=== PATIENT | female | born 1945 | race Caucasian/White ===

== ENCOUNTER → 2016-04-23 | Outpatient (CLI) | payer OTHER | LOC: CIMAGING 12:19 | PROVIDERS: ATTEND Family Medicine | DX: I51.7 Cardiomegaly (principal); M25.78 Osteophyte, vertebrae | CPT/HCPCS: 71020-PO ==

== ENCOUNTER → 2016-05-15 | Outpatient (CLI) | payer OTHER | LOC: CIMAGING 10:46 | DX: Z12.31 Encounter for screening mammogram for malignant neoplasm of breast (principal); Z80.3 Family history of malignant neoplasm of breast | CPT/HCPCS: G0202 ==

== ENCOUNTER 2016-08-01 20:58 | Emergency (ER) | payer OTHER ==
--- NOTE | 2016-08-01 21:05 | EDPHY ---
H & P HPI/ROS: HPI CHIEF COMPLAINT: Cat Bite , MULTIPLE SCRATCHES HISTORY OF PRESENT ILLNESS: This patient very pleasant 71-year-old female, up- to-date on tetanus shot, presents emergency room if she states her cat's tail got stuck in the cord of the blinds she had cut the cord of the blinds get the CT removed but in the process the CT tacked her she sustained a bite wound to the index finger left hand, also multiple scratches throughout her left arm and left leg. And a scratch on her right hand. Main concern is the bite wound to the left index finger. Of note the patient's left index finger she has horizontally oriented 2 cm laceration to the palmar aspect distal aspect of the finger along the pad. No tendon involvement. Neurovascular intact. Patient understands cat bites are at high risk for infection. She will be started on Augmentin here in the emergency room. Her tetanus shot is up-to- date. Will clean all of her wounds. She will need the palmar laceration that is distal index finger left hand approximately 3 cm in horizontal length. This most likely need 1 stitch for loose approximation of the wound edges as it is somewhat gaping. This this is her own cat. The cat is up-to-date on shots. Past Medical History: Hypertension Past Surgical History: No recent surgical history Social History: Denies daily use of drugs alcohol tobacco products Family History: Noncontributory ROS REVIEW OF SYSTEMS: A comprehensive 10 point review of systems is otherwise negative aside from elements mentioned in the history of present illness. Exam Constitutional appears well nontoxic triage nursing summary reviewed, vital signs reviewed, awake/alert. Eyes normal conjunctivae and sclera, EOMI, PERRLA. HENT normal inspection, atraumatic, moist mucus membranes, no epistaxis, neck supple/ no meningismus, no raccoon eyes. Respiratory clear to auscultation bilaterally, normal breath sounds, no respiratory distress, no wheezing. Cardiovascular rate normal, regular rhythm, no murmur, no edema, distal pulses normal. Gastrointestinal soft, non-tender, no rebound, no guarding, normal bowel sounds, no distension, no pulsatile mass. Genitourinary no CVA tenderness. Musculoskeletal no midline vertebral tenderness, full range of motion, no calf swelling, no tenderness of extremities, no meningismus, good pulses, neurovascularly intact. Skin left hand, palmar side, index finger, 3 cm horizontal laceration distal aspect. Somewhat gaping. There are other multiple cat scratch regions down the left arm, left leg and 1 to the right hand. No evidence of infection at this time is cellulitis. Left hand is neurovascular intact. No tendon involvement. No arterial vomit. Good cap refill. Full range of motion. Neurologic awake, alert and oriented x 3, AAOx3, moves all 4 extremities equally, motor intact, sensory intact, CN II-XII intact, normal cerebellar, normal vision, normal speech. Psychiatric normal mood/affect. Heme/Lymph/Immune no lymphadenopathy. Differential Diagnosis: Includes but is not limited to in a particular order, cat bite, risk for cat bite infection, multiple scratches. Medical Decision Making: Plan for this patient Augmentin p.o. here. Clean wounds. Irrigate left index finger hand wound copiously. May need 1 suture to closely approximate the wound edges. She understands watch wound closely for signs of infection. Re-evaluation: 2144: Patient's wounds have been copiously irrigated and cleaned out. Laceration Repair Procedure: Verbal Consent was obtained, Under sterile conditions, The patient had lidocaine with epinephrine used approximately 4ccs to local anesthetize the Left Index finger horizontal laceration 3cm Laceration. The wound was copiously irrigated with sterile fluid, the wound was explored for foreign bodies there were none visualized, the wound was explored with a sterile glove to the base. There are no deep structures involved, including no arterial injury. TWO 5.0 Prolene interrupted Sutures were placed in this patient's laceration. She had good loose approximation of the wound edges. He Tolerated this well. The wound was not tightly closed as is cat bite. Loosely approximate the wound edges available to release pressure or drain if infection sats in. 2145: Patient has been splinted in a luminal form finger splint for comfort and immobilization. A pressure dressing has been applied due to venous oozing. Patient understands to watch this very closely. Has not cause been applied. She understands watch her wound closely for signs of infection this includes redness, swelling, pus, drainage. Take Augmentin as prescribed. 1st dose given here in emergency room. Suture out in 10-12 days. Sooner if signs of infection. 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, HTN - Social History Smoking Status: Never smoked Constitutional: Initial Vital Signs Heart Rate 76 08/01/16 21:23 Blood Pressure 162/91 H 08/01/16 21:23 O2 Sat (%) 95 08/01/16 21:23 O2 Delivery Mode Room Air Allergies/Adverse Reactions: No Known Allergies Allergy (Verified 02/15/16 19:20) Home Medications: Medication Instructions Recorded Aspirin 02/15/16 CALCIUM 02/15/16 Herbals/Supplements -Info Only 02/15/16 MAGNESIUM 02/15/16 [place] 3 Fish Oil Softgel 02/15/16 Vitamin D3 02/15/16 Amoxicillin/Clavulanate Pot 875 mg PO BID #14 tab 08/01/16 [Augmentin 875 MG TAB (*)] Atenolol 08/01/16 Medical Decision Making - Data Points Medications Given: Discontinued Medications Amoxicillin/Clavulanate Potassium (Augmentin 875mg) 875 mg PO EDNOW ONE PRN Reason: Protocol Stop: 08/01/16 21:16 Last Admin: 08/01/16 21:42 Dose: 875 mg Departure - Departure Disposition: Home, Routine, Self-Care Clinical Impression: Cat scratch Cat bite Qualifiers: Encounter type: initial encounter Qualified Code(s): W55.01XA - Bitten by cat, initial encounter Condition: Good Instructions: Animal Bite (ED), Laceration (ED), Care For Your Stitches (ED) Additional Instructions: 1. Watch your wound closely for signs of infection this includes redness, swelling, pain, drainage, pus. 2. Please complete her antibiotics as prescribed. Take them with food and yogurt not on an empty stomach. Augmentin is known to cause diarrhea. 3. Stay well-hydrated return emergency room if you have any worsening symptoms questions concerns her stitch needs to be removed in 10-12 days. Sooner if signs of infection return immediately. Referrals: Fabiola Morales, [facility] [Primary Care Provider] - As per Instructions Prescriptions: Amoxicillin/Clavulanate Pot [Augmentin 875 MG TAB (*)] 875 mg PO BID #14 tab
[2016-08-01] MEDS ORDERED: AMOXICILLIN/CLAVULANATE POT 875/125 MG TAB PO ONE (21:15)
[2016-08-01 21:23] VITALS: O2SAT 95
[2016-08-01 22:38] VITALS: BP 174/93; PULSE 74; RESP 16; TEMP 98.4
== END 2016-08-01 22:30 | disposition home or self-care (01) ==
LOC: CED 20:58
PROC: 0HQGXZZ Repair Left Hand Skin, External Approach (ICD-10-PCS; principal; 2016-08-01)
DX: S61.211A Laceration without foreign body of left index finger without damage to nail, initial encounter (principal); I10 Essential (primary) hypertension; Z79.82 Long term (current) use of aspirin; W55.01XA Bitten by cat, initial encounter

== ENCOUNTER 2016-08-04 14:02 | Emergency (ER) | payer OTHER ==
[2016-08-04 14:44] VITALS: BP 141/84; PULSE 60; RESP 16; TEMP 97.7; O2SAT 94
--- NOTE | 2016-08-04 14:44 | EDPHY ---
H & P Time Seen by Provider: 08/04/16 14:31 HPI/ROS: HPI Wound check, left index finger. 71-year-old female by private vehicle with her . Patient is right-hand dominant. She sustained a cat bite wound to the tip of her left index finger 2 days ago on August 02. She was seen in the emergency department and treated by Dr. Chong Cano. He placed 2 sutures, 1 over the finger pad and the other at the tip of the index finger. She was placed on Augmentin. She returns to the emergency department for wound check. She denies any significant increase in swelling or discoloration. She is going away in a few days and wanted it looked out before she went away. She has not had a fever or significantly increased pain. She has been taking her Augmentin, 875 mg, twice daily as prescribed. ROS: Constitutional: No fever, no chills. No weakness. Musculoskeletal: As above Skin: As above Neurological: No focal weakness or altered sensation. Past medical history: Hypertension. No surgical history. No history of diabetes. Social history: Nonsmoker. Here with her . Physical Exam: General Appearance: Alert, no distress. This patient is responding to questions appropriately and in full sentences. This patient appears well- hydrated and well-nourished. Eyes: Pupils equal and round no pallor or injection. No lid edema, erythema or injection. Left index finger: She does have some swelling to the pulp of the distal and mid finger pad. The sutures are intact. There is some erythema associated with this but does not advance proximal to the PIP joint. She says that is unchanged from 2 days ago. She does not have any significant pain on palpation or compression of this area. There is no drainage of pus from the 2 small sutured wounds 1 at the tip of the index finger and the other over the mid finger pad of the index finger. The finger is neurovascularly intact. No erythematous streaking running up the finger into the hand or wrist. Neurological: Motor sensory function is grossly intact. Cranial nerves are normal. Gait is normal. Skin: Warm and dry, no rashes. As above. Extremities are symmetrical. All joints range without pain or impingement. Psychiatric: No agitation. No depression. Database: EKG: Imaging: Procedures: Emergency department course: Her vital signs were reviewed. She is afebrile. She feels comfortable going home and I feel she is safe for discharge. I did stress that she needed to have the finger looked at again on Friday by her primary care physician or she could return here to do it. I instructed her to continue taking her Augmentin as prescribed, twice daily for the full prescription length x7 days. Return to emergency department precautions were reviewed with her and her . All of her questions were answered. She was discharged in good condition. Differential Diagnosis: The differential diagnosis on this patient includes but is not limited to cat bite to left index finger, wound check. Abscess formation, advancing cellulitis , osteomyelitis unlikely. This represents a partial list of diagnoses considered. These considerations are based on history, physical exam, past history, reassessment and diagnostic testing. Smoking Status: Never smoked Constitutional: Initial Vital Signs Temperature (C) 36.5 C 08/04/16 14:25 Heart Rate 60 08/04/16 14:25 Respiratory Rate 16 08/04/16 14:25 Blood Pressure 141/84 H 08/04/16 14:25 O2 Sat (%) 94 08/04/16 14:25 O2 Delivery Mode Room Air Allergies/Adverse Reactions: No Known Allergies Allergy (Verified 02/15/16 19:20) Home Medications: Medication Instructions Recorded Aspirin 02/15/16 CALCIUM 02/15/16 Herbals/Supplements -Info Only 02/15/16 MAGNESIUM 02/15/16 [place] 3 Fish Oil Softgel 02/15/16 Vitamin D3 02/15/16 Amoxicillin/Clavulanate Pot 875 mg PO BID #14 tab 08/01/16 [Augmentin 875 MG TAB (*)] Atenolol 08/01/16 Departure - Departure Disposition: Home, Routine, Self-Care Clinical Impression: Visit for wound check, Cat bite to left index finger Condition: Good Instructions: Animal Bite (ED) Additional Instructions: Read and follow provided instructions. Follow-up with your primary care physician in 1-2 days for re-evaluation and wound check as discussed. Continue Augmentin as prescribed through entire course of treatment. Return to the emergency department for worsening swelling, redness or swelling to the finger, spreading of the redness or swelling up your finger, into your hand or wrist, fever or other serious concerns. Referrals: Fabiola Morales CNP [Primary Care Provider] - As per Instructions
== END 2016-08-04 15:09 | disposition home or self-care (01) ==
LOC: CED 14:02
DX: Z48.01 Encounter for change or removal of surgical wound dressing (principal); I10 Essential (primary) hypertension; Z79.82 Long term (current) use of aspirin
CPT/HCPCS: G0463

== ENCOUNTER → 2017-05-19 | Outpatient (CLI) | payer OTHER | LOC: CIMAGING 10:20 | PROVIDERS: ATTEND Family Medicine Geriatric Medicine | DX: Z12.31 Encounter for screening mammogram for malignant neoplasm of breast (principal); Z80.3 Family history of malignant neoplasm of breast ==

== ENCOUNTER → 2017-05-26 | Outpatient (CLI) | payer OTHER | LOC: CIMAGING 13:27 | PROVIDERS: ATTEND Registered Nurse | DX: R92.8 Other abnormal and inconclusive findings on diagnostic imaging of breast (principal) | CPT/HCPCS: 76641-PO ==

== ENCOUNTER → 2017-10-16 | Outpatient (CLI) | payer OTHER | LOC: FIMAGING 10:03 | PROVIDERS: ATTEND Registered Nurse | DX: Z13.820 Encounter for screening for osteoporosis (principal); N81.0 Urethrocele; Z78.0 Asymptomatic menopausal state ==

== ENCOUNTER → 2017-10-21 | Outpatient (CLI) | payer OTHER | LOC: BHLMT 10:00 | PROVIDERS: ATTEND Internal Medicine Interventional Cardiology | DX: I34.1 Nonrheumatic mitral (valve) prolapse (principal) | CPT/HCPCS: 93306-PO ==

== ENCOUNTER → 2017-11-26 | Outpatient (CLI) | payer OTHER | LOC: CIMAGING 13:08 | PROVIDERS: ATTEND Registered Nurse | DX: R92.8 Other abnormal and inconclusive findings on diagnostic imaging of breast (principal) ==

== ENCOUNTER → 2017-12-15 | Outpatient (CLI) | payer OTHER ==
[~2017-12-15] MED LIST: IOPAMIDOL (ISOVUE-300) 100 ML BTL ONE
== END ==
LOC: CIMAGING 10:12
PROVIDERS: ATTEND Registered Nurse
DX: K57.30 Diverticulosis of large intestine without perforation or abscess without bleeding (principal); K76.89 Other specified diseases of liver; N28.1 Cyst of kidney, acquired
CPT/HCPCS: 74177; Q9967; 82565-PO

== ENCOUNTER → 2017-12-18 | Outpatient (CLI) | payer OTHER | LOC: CIMAGING 15:45 | PROVIDERS: ATTEND Family Medicine Geriatric Medicine | DX: N28.1 Cyst of kidney, acquired (principal) | CPT/HCPCS: 76770-PO ==

== ENCOUNTER → 2018-05-21 | Outpatient (CLI) | payer OTHER, BC | LOC: CIMAGING 09:22 | DX: Z12.31 Encounter for screening mammogram for malignant neoplasm of breast (principal); Z85.72 Personal history of non-Hodgkin lymphomas ==

== ENCOUNTER → 2018-05-25 | Outpatient (CLI) | payer OTHER, BC | LOC: CIMAGING 09:29 | DX: N28.1 Cyst of kidney, acquired (principal); K76.89 Other specified diseases of liver; M48.061 Spinal stenosis, lumbar region without neurogenic claudication | CPT/HCPCS: 74160; Q9967 ==